=== PATIENT | male | born 1985 | race Caucasian/White ===

== ENCOUNTER → 2016-06-18 | Outpatient (CLI) | payer BC ==
[~2016-06-18] MED LIST: BNC40
--- NOTE | 2016-06-18 09:40 | DIAGNOSTIC IMAGING REPORT ---
MRI right knee RIGHT LOWER EXT JOINT WITHOUT CLINICAL HISTORY: RT KNEE PAIN Right pain TECHNIQUE: MRI multi axial acquisition COMPARISON STUDY: None FINDINGS: Normal signal characteristics the osseous structures. The patellofemoral joint is unremarkable. Anterior and posterior cruciate ligaments are intact. Collateral ligaments are unremarkable. No evidence for chondromalacia patella. Medial and lateral menisci are unremarkable in overall configuration. No evidence for meniscal tear. No significant popliteal cyst. IMPRESSION: Normal study Electronically signed by: Martin Faria M.D. 06/18/2016 9:38 AM Dictated Date/Time: 06/18/2016 9:31 AM
== END | disposition home or self-care (01) ==
LOC: C.MRI 08:22
PROVIDERS: ATTEND Nurse Practitioner
DX: M25.561 Pain in right knee (principal)

== ENCOUNTER → 2016-06-18 | Outpatient (CLI) | payer BC ==
[2016-06-18 15:01] LABS: THYROID STIMULATING HORMONE 2.02 uIu/ml (0.300-4.500)
== END | disposition home or self-care (01) ==
LOC: C.LAB1850 09:42
PROVIDERS: ATTEND Physician Assistant
DX: E05.90 Thyrotoxicosis, unspecified without thyrotoxic crisis or storm (principal)

== ENCOUNTER → 2016-10-29 | Outpatient (CLI) | payer BC ==
[2016-10-29 18:07] LABS: THYROID STIMULATING HORMONE 0.945 uIu/ml (0.300-4.500)
== END | disposition home or self-care (01) ==
LOC: C.LAB1850 16:12
PROVIDERS: ATTEND Physician Assistant
DX: E05.90 Thyrotoxicosis, unspecified without thyrotoxic crisis or storm (principal)